=== PATIENT | female | born 1985 | race Caucasian/White ===

== ENCOUNTER 2017-07-09 11:36 | Emergency (ER) | payer SELFPAY ==
[~2017-07-09 11:36] MED LIST: Sodium Chloride 0.9% 1,000 ML BAG ONE
[2017-07-09 12:03] LABS: #Basophils 0.1 thou/uL (0.0-0.2); #Eosinphils 0.1 thou/uL (0.0-0.7); #Lymphocytes 1.9 thou/uL (1.20-3.40); #Monocytes 0.3 thou/uL (0.11-0.59); #Neutrophils 4.1 thou/uL (1.40-6.50); %Basophils 1.1 % (0.0-1.0); %Eosinophils 1.9 % (0.0-10.0); %Lymphocytes 29.1 % (21.0-51.0); %Monocytes 4.9 % (0.0-10.0); Hemoglobin 13.3 g/dL (12.0-16.0); Mean Corpuscular HGB CONC 33.3 g/dL (32.0-36.0); Mean Corpuscular Hemoglobin 29.4 pg (27.0-31.0); Mean Corpuscular Volume 88.3 fl (81.0-99.0); Mean Platelet Volume 5.6 fL (7.4-10.4); Platelet Count 228 thou/uL (130-400); RBC Distribution Width 11.7 % (11.5-14.5); Red Blood Cell (RBC) Count 4.51 mill/uL (4.20-5.40); White Blood Cell (WBC) Count 6.5 thou/uL (4.8-10.8)
[2017-07-09] MEDS ORDERED: Ketorolac Tromethamine 30 MG/ML VIAL ONE (12:11)
[2017-07-09] MEDS ORDERED: Lorazepam 2 MG/ML VIAL ONE (12:11)
[2017-07-09] MEDS ORDERED: HYDROcodone/Acetaminophen 10/325 mg Tablet ONE (12:11)
[2017-07-09 12:13] LABS: Bilirubin Negative (Negative); Blood, Urine Trace (Negative); Glucose, Urine (Dipstick) Negative (Negative); Leukocyte Moderate (Negative); Nitrite Negative (Negative); Pregnancy Test - Urine (BHCG) Negative (Negative); Protein, Urine (Dipstick) 30 mg/dL (Neg-Trace); Urobilinogen 0.2 mg/dL (0.2-1.0)
[2017-07-09] MEDS ORDERED: Ondansetron HCl/PF 4 MG/2 ML Vial ONE (12:13)
[2017-07-09 12:15] LABS: Pregu Control Background? CLEAR/WHITE (CLR/WHITE); Pregu Control Bar Appear? YES (CONTROL BAR); Specific Gravity 1.025 (1.002-1.036)
[2017-07-09 12:16] LABS: Clarity Cloudy (Clear); Specific Gravity, Urine 1.025 (1.002-1.036)
[2017-07-09 12:16] LABS: PTT 25.8 SEC (22.9-36.1); Prothrombin Time 13.5 SEC (12.0-14.7)
[2017-07-09 12:23] LABS: ALT (SGPT) 43 U/L (8-55); AST (SGOT) 18 U/L (5-34); Alkaline Phosphatase 45 U/L (40-150); Anion Gap 14 mmol/L (10-20); BUN (Urea Nitrogen) 15 mg/dL (7.0-18.7); Bilirubin, Total 0.4 mg/dL (0.2-1.2); Calc. Creatinine Clearance 0 mL/min (70-130); Calcium 9.3 mg/dL (7.8-10.44); Carbon Dioxide 22 mmol/L (22-29); Chloride 109 mmol/L (98-107); Estimated GFR-MDRD 87; Globulin 2.6 g/dL (2.4-3.5); Glucose 124 mg/dL (70-105); Potassium 3.6 mmol/L (3.5-5.1); Protein, Total 6.6 g/dL (6.0-8.3); Sodium 141 mmol/L (136-145)
[2017-07-09 12:28] LABS: RBC/HPF 0-3 HPF (0-3); WBC/HPF 21-50 HPF (0-3)
[2017-07-09] MEDS ORDERED: cefTRIAXone\\ROCEPHIN 1 GM VIAL ONE (12:28)
[2017-07-09 12:29] LABS: Bacteria/HPF 1+ HPF (None Seen); Hyaline Casts/LPF 0-3 HYALINE CAST LPF (0-3 Hyaline); Trichomonas/HPF 1+ HPF (None Seen)
[2017-07-09] MEDS ORDERED: metroNIDAZOLE 500 MG/100 ML BAG ONE (13:11)
[2017-07-09 13:19] LABS: CK (CPK) 82 U/L (29-168)
[2017-07-09] MEDS ORDERED: Fentanyl 100 MCG/2 ML VIAL ONE (17:56)
[2017-07-09 19:45] LABS: #Basophils 0.1 thou/uL (0.0-0.2); #Eosinphils 0.2 thou/uL (0.0-0.7); #Lymphocytes 2.2 thou/uL (1.20-3.40); #Monocytes 0.5 thou/uL (0.11-0.59); %Basophils 0.9 % (0.0-1.0); %Eosinophils 2.7 % (0.0-10.0); %Lymphocytes 37.5 % (21.0-51.0); %Monocytes 7.8 % (0.0-10.0); %Neutrophils 51.1 % (42.0-75.0); Hemoglobin 12.2 g/dL (12.0-16.0); Mean Corpuscular HGB CONC 33.2 g/dL (32.0-36.0); Mean Corpuscular Volume 90.5 fl (81.0-99.0); Mean Platelet Volume 5.7 fL (7.4-10.4); Platelet Count 189 thou/uL (130-400); RBC Distribution Width 11.8 % (11.5-14.5); Red Blood Cell (RBC) Count 4.08 mill/uL (4.20-5.40); White Blood Cell (WBC) Count 5.9 thou/uL (4.8-10.8)
[2017-07-09 19:52] LABS: INR-International Normal Ratio 1.1; PTT 27.1 SEC (22.9-36.1); Prothrombin Time 13.8 SEC (12.0-14.7)
== END 2017-07-09 21:02 | disposition home or self-care (01) ==
LOC: MADERS 11:36
DX: S91.155A Open bite of left lesser toe(s) without damage to nail, initial encounter (principal); F41.9 Anxiety disorder, unspecified; F17.210 Nicotine dependence, cigarettes, uncomplicated; W57.XXXA Bitten or stung by nonvenomous insect and other nonvenomous arthropods, initial encounter
CPT/HCPCS: 80053; 81003; 81015; 81025; 82550; 85025; 85384; 85610; 85730; 86850; 86900; 86901; 96361; 96365; 96366; 96375; J0696; J1885; J2060; J2405; J3010; J7050

== ENCOUNTER 2017-11-08 12:31 | Emergency (ER) | payer SELFPAY ==
--- NOTE | 2017-11-08 13:27 | RAD ---
CHEST TWO VIEWS: 11/08/2017 PROVIDED CLINICAL HISTORY: Cough. COMPARISON: 10/14/2014 FINDINGS: Evaluation is limited by patient body habitus. The anterior aspect of the chest, superiorly, is not well visualized on the lateral view due to overlapping of soft tissues. The cardiac silhouette is wi thin normal limits. There is no definite focal consolidation, pleural fluid, or pneumothorax apparen t. IMPRESSION: Limited study without evidence for an acute cardiopulmonary process. POS: [id number]
[2017-11-08] MEDS ORDERED: Ketorolac Tromethamine 60 MG/2 ML VIAL ONE (13:30)
== END 2017-11-08 15:26 | disposition home or self-care (01) ==
LOC: MADERS 12:31
DX: J11.1 Influenza due to unidentified influenza virus with other respiratory manifestations (principal); F17.210 Nicotine dependence, cigarettes, uncomplicated
CPT/HCPCS: 71046; 87804; 96372; J1885

== ENCOUNTER 2024-09-13 18:36 | Emergency (ER) | payer OTHER ==
[2024-09-13] MEDS ORDERED: cloNIDine 0.1 MG TAB ONE (19:07)
== END 2024-09-13 19:10 | disposition home or self-care (01) ==
LOC: MADERS 18:36
DX: I10 Essential (primary) hypertension (principal); E11.9 Type 2 diabetes mellitus without complications; F17.290 Nicotine dependence, other tobacco product, uncomplicated; Z79.899 Other long term (current) drug therapy
CPT/HCPCS: 99283

== ENCOUNTER 2025-01-25 18:32 | Emergency (ER) | payer OTHER ==
[2025-01-25] MEDS ORDERED: Acetaminophen 325 MG TAB ONE (20:34)
== END 2025-01-25 21:03 | disposition home or self-care (01) ==
LOC: MADERS 18:32
DX: S93.402A Sprain of unspecified ligament of left ankle, initial encounter (principal); S86.812A Strain of other muscle(s) and tendon(s) at lower leg level, left leg, initial encounter; I11.0 Hypertensive heart disease with heart failure; I50.9 Heart failure, unspecified; Z87.891 Personal history of nicotine dependence; X50.1XXA Overexertion from prolonged static or awkward postures, initial encounter
CPT/HCPCS: 96372; 99283; J1885